=== PATIENT | female | born 1965 | race Caucasian/White ===

== ENCOUNTER 2018-05-12 22:54 | Inpatient (IN) | payer MEDICAID ==
[2018-05-13] MEDS ORDERED: ONDANSETRON 4 MG INJ IV (04:30)
[2018-05-13] MEDS ORDERED: ALBUTEROL/IPRATROPIUM (NEB) 3 ML AMP HHN (04:30)
[2018-05-13] MEDS ORDERED: NACL 0.9% 3 ML SYG IV (04:30)
[2018-05-13 04:46] LABS: ADD MAN DIFF? NO
[2018-05-13 04:51] LABS: BASOPHILS % 0.3 % (0.0-2.0); EOSINOPHILS # 0.1 10^3/ul (0.0-0.5); EOSINOPHILS % 0.7 % (0.0-7.0); HEMATOCRIT 37.2 % (37.0-47.0); HEMOGLOBIN 12.5 g/dl (12.0-16.0); LYMPHOCYTES # 2.1 10^3/ul (0.8-2.9); LYMPHOCYTES % 18.3 % (15.0-51.0); MEAN CORPUSCULAR HEMOGLOBIN 28.9 pg (29.0-33.0); MEAN CORPUSCULAR HGB CONC 33.6 g/dl (32.0-37.0); MEAN CORPUSCULAR VOLUME 86.1 fl (82.0-101.0); MONOCYTE # 0.5 10^3/ul (0.3-0.9); MONOCYTES % 4.5 % (0.0-11.0); NEUTROPHIL # 8.6 10^3/ul (1.6-7.5); NEUTROPHILS % 75.8 % (39.0-77.0); PLATELET COUNT 206 10^3/UL (140-415); RED BLOOD COUNT 4.32 10^6/ul (4.20-5.40); RED CELL DISTRIBUTION WIDTH 12.4 % (11.5-14.5)
[2018-05-13 04:51] LABS: WHITE BLOOD COUNT 11.3 10^3/ul (4.8-10.8)
[2018-05-13] MEDS: HYDROCODONE/APAP (5/325) TAB PO ×2 (05:05→13:24)
[2018-05-13 05:06] LABS: ALANINE AMINOTRANSFERASE 56 IU/L (13-69); ALBUMIN 4.1 g/dl (3.3-4.9); ALBUMIN/GLOBULIN RATIO 1.02; ALKALINE PHOSPHATASE 168 IU/L (42-121); ANION GAP 13 (5-13); ASPARTATE AMINO TRANSFERASE 51 IU/L (15-46); BILIRUBIN,INDIRECT 0.3 mg/dl (0-1.1); BILIRUBIN,TOTAL 0.3 mg/dl (0.2-1.3); BLOOD UREA NITROGEN 12 mg/dl (7-20); CALCIUM 9.5 mg/dl (8.4-10.2); CARBON DIOXIDE 26 mmol/L (21-31); CHLORIDE 102 mmol/L (97-110); CREATININE 0.35 mg/dl (0.44-1.00); Estimated GFR > 60 mL/min (>60); GLUCOSE 311 mg/dl (70-220); LIPASE 73 U/L (23-300); POTASSIUM 4.8 mmol/L (3.5-5.1); SODIUM 141 mmol/L (135-144); TOTAL PROTEIN 8.1 g/dl (6.1-8.1)
[2018-05-13 05:08] LABS: INR 0.88; PARTIAL THROMBOPLASTIN TIME 24.1 Sec (23.0-35.0); PT RATIO 0.9
[2018-05-13] MEDS ORDERED: GLUCOSE GEL 15 GRAM TUBE PO ×2 (05:30)
[2018-05-13] MEDS ORDERED: DEXTROSE 50% 50 ML SYRINGE IV ×2 (05:30)
[2018-05-13] MEDS ORDERED: GLUCOSE GEL 15 GRAM TUBE BUCCAL (05:30)
[2018-05-13] MEDS ORDERED: GLUCAGON 1 MG INJ IM (05:30)
[2018-05-13] MEDS: ASPIRIN (EC) 81 MG TAB PO (09:00)
[2018-05-13] MEDS: LISINOPRIL 5 MG TAB PO (09:07)
[2018-05-13] MEDS: HEPARIN 5,000 UNIT/1 ML VIAL SC ×2 (09:11→20:27)
[2018-05-13] MEDS: INSULIN GLARGINE [LANTus] (100 UNITS/ML) SYG SC ×2 (09:12→20:25)
[2018-05-13] MEDS: INSULIN ASPART [NOVOLOG] 3 ML PEN SC ×4 (09:16→20:24)
[2018-05-13 21:16] LABS: TROPONIN-I < 0.012 ng/ml (0.000-0.120)
[2018-05-14] MEDS ORDERED: ACCU-CHEK XX (02:00)
[2018-05-14] MEDS: HYDROCODONE/APAP (5/325) TAB PO (02:31)
[2018-05-14] MEDS: ACCU-CHEK XX (02:31)
[2018-05-14 05:10] LABS: ADD MAN DIFF? NO
[2018-05-14 05:14] LABS: WHITE BLOOD COUNT 8.9 10^3/ul (4.8-10.8)
[2018-05-14 05:14] LABS: BASOPHILS % 0.3 % (0.0-2.0); EOSINOPHILS # 0.2 10^3/ul (0.0-0.5); EOSINOPHILS % 2.2 % (0.0-7.0); HEMATOCRIT 37.9 % (37.0-47.0); HEMOGLOBIN 12.5 g/dl (12.0-16.0); LYMPHOCYTES # 2.3 10^3/ul (0.8-2.9); LYMPHOCYTES % 26.1 % (15.0-51.0); MEAN CORPUSCULAR HEMOGLOBIN 28.8 pg (29.0-33.0); MEAN CORPUSCULAR VOLUME 87.3 fl (82.0-101.0); MEAN PLATELET VOLUME 10.5 fl (7.4-10.4); MONOCYTE # 0.5 10^3/ul (0.3-0.9); MONOCYTES % 5.7 % (0.0-11.0); NEUTROPHIL # 5.8 10^3/ul (1.6-7.5); NEUTROPHILS % 65.3 % (39.0-77.0); PLATELET COUNT 204 10^3/UL (140-415); RED BLOOD COUNT 4.34 10^6/ul (4.20-5.40); RED CELL DISTRIBUTION WIDTH 12.8 % (11.5-14.5)
[2018-05-14 05:28] LABS: HEMOGLOBIN A1C 11.1 % (0-5.9)
[2018-05-14 05:35] LABS: ANION GAP 7 (5-13); BLOOD UREA NITROGEN 14 mg/dl (7-20); CALCIUM 9.1 mg/dl (8.4-10.2); CARBON DIOXIDE 27 mmol/L (21-31); CHLORIDE 103 mmol/L (97-110); CREATININE 0.46 mg/dl (0.44-1.00); Estimated GFR > 60 mL/min (>60); GLUCOSE 277 mg/dl (70-220); MAGNESIUM 1.9 mg/dl (1.7-2.5); PHOSPHORUS 4.1 mg/dl (2.5-4.9); POTASSIUM 4.4 mmol/L (3.5-5.1); SODIUM 137 mmol/L (135-144)
[2018-05-14] MEDS: INSULIN ASPART [NOVOLOG] 3 ML PEN SC ×7 (07:50→21:00)
[2018-05-14] MEDS: LISINOPRIL 5 MG TAB PO (08:31)
[2018-05-14] MEDS: HEPARIN 5,000 UNIT/1 ML VIAL SC ×2 (08:31→19:54)
[2018-05-14] MEDS: ASPIRIN (EC) 81 MG TAB PO (08:31)
[2018-05-14] MEDS: INSULIN GLARGINE [LANTus] (100 UNITS/ML) SYG SC ×2 (09:38→20:00)
[2018-05-14] MEDS: SOD CHLORIDE 0.45% 1,000 ML IV ×2 (11:10→22:50)
[2018-05-14] MEDS: morphine 4 MG/ML VIAL IV (12:34)
[2018-05-14] MEDS ORDERED: ROPIVACAINE 0.5 % 30 ML VIAL (20:22)
[2018-05-14] MEDS ORDERED: MIDAZOLAM 1 MG/ML 2 ML INJ (20:22)
[2018-05-14] MEDS ORDERED: CEFAZOLIN 1 GM INJ (20:22)
[2018-05-14] MEDS ORDERED: ROCURONIUM 50 MG INJ (20:22)
[2018-05-14] MEDS ORDERED: PROPOFOL 20 ML (20:22)
[2018-05-14] MEDS ORDERED: HYDROmorphONE 1 MG/5 ML IV SYRINGE IV ×3 (20:30)
[2018-05-14] MEDS ORDERED: METOCLOPRAMIDE 10 MG INJ IV (20:30)
[2018-05-14] MEDS ORDERED: EPHEDrine SULFATE 50 MG/5 ML SYG IV (20:30)
[2018-05-14] MEDS ORDERED: hydrALAzine 20 MG INJ IV (20:30)
[2018-05-14] MEDS ORDERED: DIPHENHYDRAMINE 50 MG INJ IV (20:30)
[2018-05-14] MEDS ORDERED: LABETALOL HCL 20MG INJ IV (20:30)
[2018-05-14] MEDS ORDERED: FENTAnyl 50 MCG/ML VIAL IV ×3 (20:30)
[2018-05-14] MEDS ORDERED: MEPERIDINE 25 MG INJ IV (20:30)
[2018-05-14] MEDS ORDERED: OXYCODONE/ACETAMINOPHEN (5/325) TAB PO ×2 (20:30)
[2018-05-14] MEDS ORDERED: ONDANSETRON 4 MG INJ IV (20:30)
[2018-05-14] MEDS ORDERED: ONDANSETRON 4 MG INJ (21:09)
[2018-05-14] MEDS ORDERED: KETOROLAC 30 MG INJ (21:10)
[2018-05-14] MEDS ORDERED: METOCLOPRAMIDE 10 MG INJ (21:10)
[2018-05-14] MEDS ORDERED: DEXAMETHASONE 4 MG/ML 5 ML INJ (21:10)
[2018-05-14] MEDS ORDERED: GLYCOPYRROLATE 1 MG INJ (22:47)
[2018-05-14] MEDS ORDERED: NEOSTIGMINE 3 MG/3 ML SYRINGE (22:47)
[2018-05-14] MEDS ORDERED: LABETALOL HCL 20MG INJ (22:52)
[2018-05-14] MEDS: SOD CHLORIDE 0.9% 1,000 ML IV (23:02)
[2018-05-14] MEDS ORDERED: NACL 0.9% 3 ML SYG IV (23:30)
[2018-05-14] MEDS ORDERED: HYDROCODONE/APAP (5/325) TAB PO (23:30)
[2018-05-14] MEDS ORDERED: morphine 4 MG/ML VIAL IV (23:30)
[2018-05-14] MEDS: CEFAZOLIN 1 GM/50 ML (PMX) 50 ML IVPB (23:37)
[2018-05-15] MEDS: INSULIN GLARGINE [LANTus] (100 UNITS/ML) SYG SC ×3 (01:10→20:35)
[2018-05-15] MEDS: INSULIN ASPART [NOVOLOG] 3 ML PEN SC ×8 (01:16→20:39)
[2018-05-15] MEDS: ACCU-CHEK XX (01:22)
[2018-05-15] MEDS: SOD CHLORIDE 0.9% 1,000 ML IV ×3 (04:44→19:02)
[2018-05-15 05:12] LABS: ADD MAN DIFF? NO
[2018-05-15 05:20] LABS: BASOPHILS % 0.2 % (0.0-2.0); HEMATOCRIT 37.7 % (37.0-47.0); HEMOGLOBIN 12.4 g/dl (12.0-16.0); LYMPHOCYTES # 1.1 10^3/ul (0.8-2.9); LYMPHOCYTES % 9.1 % (15.0-51.0); MEAN CORPUSCULAR HEMOGLOBIN 28.9 pg (29.0-33.0); MEAN CORPUSCULAR HGB CONC 32.9 g/dl (32.0-37.0); MEAN CORPUSCULAR VOLUME 87.9 fl (82.0-101.0); MEAN PLATELET VOLUME 10.9 fl (7.4-10.4); MONOCYTE # 0.2 10^3/ul (0.3-0.9); MONOCYTES % 1.6 % (0.0-11.0); NEUTROPHIL # 10.7 10^3/ul (1.6-7.5); NEUTROPHILS % 88.4 % (39.0-77.0); PLATELET COUNT 207 10^3/UL (140-415); RED BLOOD COUNT 4.29 10^6/ul (4.20-5.40)
[2018-05-15 05:20] LABS: WHITE BLOOD COUNT 12.1 10^3/ul (4.8-10.8)
[2018-05-15 05:47] LABS: ANION GAP 9 (5-13); BLOOD UREA NITROGEN 15 mg/dl (7-20); CALCIUM 8.8 mg/dl (8.4-10.2); CARBON DIOXIDE 25 mmol/L (21-31); CHLORIDE 103 mmol/L (97-110); CREATININE 0.55 mg/dl (0.44-1.00); Estimated GFR > 60 mL/min (>60); GLUCOSE 353 mg/dl (70-220); POTASSIUM 4.6 mmol/L (3.5-5.1); SODIUM 137 mmol/L (135-144)
[2018-05-15] MEDS: CEFAZOLIN 1 GM/50 ML (PMX) 50 ML IVPB ×2 (08:46→16:20)
[2018-05-15] MEDS: LISINOPRIL 5 MG TAB PO (08:58)
[2018-05-15] MEDS: ASPIRIN (EC) 81 MG TAB PO (08:58)
[2018-05-15] MEDS: ENOXAPARIN 40 MG/0.4 ML SYG SC (10:40)
[2018-05-15] MEDS: HYDROCODONE/APAP (5/325) TAB PO (10:49)
[2018-05-15] MEDS: SOD CHLORIDE 0.45% 1,000 ML IV (12:10)
[2018-05-15] MEDS: morphine 4 MG/ML VIAL IV ×2 (13:37→22:19)
[2018-05-16] MEDS: SOD CHLORIDE 0.45% 1,000 ML IV (01:30)
[2018-05-16] MEDS: ACCU-CHEK XX ×2 (02:00→21:26)
[2018-05-16] MEDS: HYDROCODONE/APAP (5/325) TAB PO ×4 (02:54→21:54)
[2018-05-16] MEDS: SOD CHLORIDE 0.9% 1,000 ML IV (05:02)
[2018-05-16 05:39] LABS: ADD MAN DIFF? NO
[2018-05-16 05:44] LABS: BASOPHILS % 0.2 % (0.0-2.0); EOSINOPHILS # 0.1 10^3/ul (0.0-0.5); EOSINOPHILS % 1.1 % (0.0-7.0); HEMATOCRIT 34.5 % (37.0-47.0); HEMOGLOBIN 11.2 g/dl (12.0-16.0); LYMPHOCYTES # 2.2 10^3/ul (0.8-2.9); LYMPHOCYTES % 16.9 % (15.0-51.0); MEAN CORPUSCULAR HEMOGLOBIN 28.9 pg (29.0-33.0); MEAN CORPUSCULAR HGB CONC 32.5 g/dl (32.0-37.0); MEAN CORPUSCULAR VOLUME 89.1 fl (82.0-101.0); MEAN PLATELET VOLUME 10.9 fl (7.4-10.4); MONOCYTE # 0.8 10^3/ul (0.3-0.9); MONOCYTES % 6.3 % (0.0-11.0); NEUTROPHIL # 9.6 10^3/ul (1.6-7.5); NEUTROPHILS % 75.1 % (39.0-77.0); PLATELET COUNT 195 10^3/UL (140-415); RED BLOOD COUNT 3.87 10^6/ul (4.20-5.40); RED CELL DISTRIBUTION WIDTH 13.4 % (11.5-14.5)
[2018-05-16 05:44] LABS: WHITE BLOOD COUNT 12.8 10^3/ul (4.8-10.8)
[2018-05-16 06:18] LABS: ANION GAP 7 (5-13); BLOOD UREA NITROGEN 15 mg/dl (7-20); CALCIUM 8.3 mg/dl (8.4-10.2); CARBON DIOXIDE 28 mmol/L (21-31); CHLORIDE 102 mmol/L (97-110); CREATININE 0.56 mg/dl (0.44-1.00); Estimated GFR > 60 mL/min (>60); GLUCOSE 266 mg/dl (70-220); POTASSIUM 4.3 mmol/L (3.5-5.1); SODIUM 137 mmol/L (135-144)
[2018-05-16] MEDS: INSULIN ASPART [NOVOLOG] 3 ML PEN SC ×7 (08:40→21:00)
[2018-05-16] MEDS: INSULIN GLARGINE [LANTus] (100 UNITS/ML) SYG SC ×2 (08:42→21:25)
[2018-05-16] MEDS: ENOXAPARIN 40 MG/0.4 ML SYG SC (08:42)
[2018-05-16] MEDS: LISINOPRIL 5 MG TAB PO (08:45)
[2018-05-16] MEDS: ASPIRIN (EC) 81 MG TAB PO (08:46)
[2018-05-17] MEDS: HYDROCODONE/APAP (5/325) TAB PO ×3 (05:02→22:49)
[2018-05-17 05:14] LABS: ADD MAN DIFF? NO
[2018-05-17 05:38] LABS: BASOPHILS % 0.2 % (0.0-2.0); EOSINOPHILS # 0.3 10^3/ul (0.0-0.5); HEMATOCRIT 35.2 % (37.0-47.0); HEMOGLOBIN 11.2 g/dl (12.0-16.0); LYMPHOCYTES # 2.2 10^3/ul (0.8-2.9); LYMPHOCYTES % 16.7 % (15.0-51.0); MEAN CORPUSCULAR HEMOGLOBIN 28.4 pg (29.0-33.0); MEAN CORPUSCULAR HGB CONC 31.8 g/dl (32.0-37.0); MEAN CORPUSCULAR VOLUME 89.3 fl (82.0-101.0); MEAN PLATELET VOLUME 10.8 fl (7.4-10.4); MONOCYTE # 0.8 10^3/ul (0.3-0.9); MONOCYTES % 6.5 % (0.0-11.0); NEUTROPHIL # 9.5 10^3/ul (1.6-7.5); NEUTROPHILS % 74.2 % (39.0-77.0); PLATELET COUNT 194 10^3/UL (140-415); RED BLOOD COUNT 3.94 10^6/ul (4.20-5.40); RED CELL DISTRIBUTION WIDTH 13.1 % (11.5-14.5)
[2018-05-17 05:38] LABS: WHITE BLOOD COUNT 12.8 10^3/ul (4.8-10.8)
[2018-05-17 06:01] LABS: ANION GAP 8 (5-13); BLOOD UREA NITROGEN 14 mg/dl (7-20); CALCIUM 8.6 mg/dl (8.4-10.2); CARBON DIOXIDE 27 mmol/L (21-31); CHLORIDE 101 mmol/L (97-110); CREATININE 0.44 mg/dl (0.44-1.00); Estimated GFR > 60 mL/min (>60); GLUCOSE 179 mg/dl (70-220); MAGNESIUM 1.9 mg/dl (1.7-2.5); PHOSPHORUS 3.3 mg/dl (2.5-4.9); POTASSIUM 4.2 mmol/L (3.5-5.1); SODIUM 136 mmol/L (135-144)
[2018-05-17] MEDS: ASPIRIN (EC) 81 MG TAB PO (08:56)
[2018-05-17] MEDS: LISINOPRIL 5 MG TAB PO (08:56)
[2018-05-17] MEDS: ENOXAPARIN 40 MG/0.4 ML SYG SC (09:02)
[2018-05-17] MEDS: INSULIN ASPART [NOVOLOG] 3 ML PEN SC ×7 (09:02→21:00)
[2018-05-17] MEDS: INSULIN GLARGINE [LANTus] (100 UNITS/ML) SYG SC ×2 (09:04→20:26)
[2018-05-17] MEDS: ACETAMINOPHEN 325 MG TAB PO (15:11)
[2018-05-17 16:11] LABS: ADD UMIC YES; UR ASCORBIC ACID NEGATIVE (NEGATIVE); UR BILIRUBIN (Dip) NEGATIVE (NEGATIVE); UR BLOOD (Dip) 2+ mg/dL (NEGATIVE); UR CLARITY CLEAR (CLEAR); UR COLOR YELLOW (YELLOW); UR GLUCOSE (Dip) 1+ mg/dL (NEGATIVE); UR KETONES (Dip) NEGATIVE (NEGATIVE); UR LEUKOCYTE ESTERASE (Dip) NEGATIVE Leu/ul (NEGATIVE); UR NITRITE (Dip) NEGATIVE (NEGATIVE); UR RBC 5 /HPF (0-5); UR SPECIFIC GRAVITY (Dip) 1.016 (1.003-1.030); UR TOTAL PROTEIN (Dip) NEGATIVE (NEGATIVE); UR UROBILINOGEN (Dip) 2+ mg/dL (NEGATIVE); UR WBC 2 /HPF (0-5)
[2018-05-17 16:35] LABS: LACTIC ACID 1.5 mmol/L (0.5-2.0)
[2018-05-17] MEDS: POLYETHYLENE GLYCOL 17 GM PACKET PO (20:18)
[2018-05-18] MEDS: ACETAMINOPHEN 325 MG TAB PO (00:41)
[2018-05-18] MEDS: ACCU-CHEK XX (01:55)
[2018-05-18] MEDS: LISINOPRIL 5 MG TAB PO (09:19)
[2018-05-18] MEDS: HYDROCODONE/APAP (5/325) TAB PO ×2 (09:19→14:10)
[2018-05-18] MEDS: ASPIRIN (EC) 81 MG TAB PO (09:19)
[2018-05-18] MEDS: INSULIN ASPART [NOVOLOG] 3 ML PEN SC ×7 (09:20→20:42)
[2018-05-18] MEDS: INSULIN GLARGINE [LANTus] (100 UNITS/ML) SYG SC ×2 (09:21→20:44)
[2018-05-18] MEDS: ENOXAPARIN 40 MG/0.4 ML SYG SC (09:22)
[2018-05-18] MEDS: MAGNESIUM CITRATE 300 ML BTL PO (16:41)
[2018-05-18] MEDS: LEVOFLOXACIN 500 MG TAB PO (17:51)
[2018-05-19] MEDS: HYDROCODONE/APAP (5/325) TAB PO ×3 (01:00→15:52)
[2018-05-19] MEDS: ACCU-CHEK XX (01:17)
[2018-05-19] MEDS: LEVOFLOXACIN 500 MG TAB PO (04:51)
[2018-05-19 05:15] LABS: ADD MAN DIFF? NO
[2018-05-19 05:26] LABS: WHITE BLOOD COUNT 11.2 10^3/ul (4.8-10.8)
[2018-05-19 05:26] LABS: BASOPHILS % 0.4 % (0.0-2.0); EOSINOPHILS # 0.2 10^3/ul (0.0-0.5); EOSINOPHILS % 1.3 % (0.0-7.0); HEMATOCRIT 34.4 % (37.0-47.0); HEMOGLOBIN 11.1 g/dl (12.0-16.0); LYMPHOCYTES # 2.4 10^3/ul (0.8-2.9); LYMPHOCYTES % 21.2 % (15.0-51.0); MEAN CORPUSCULAR HEMOGLOBIN 28.9 pg (29.0-33.0); MEAN CORPUSCULAR HGB CONC 32.3 g/dl (32.0-37.0); MEAN CORPUSCULAR VOLUME 89.6 fl (82.0-101.0); MEAN PLATELET VOLUME 10.6 fl (7.4-10.4); MONOCYTE # 0.7 10^3/ul (0.3-0.9); MONOCYTES % 6.2 % (0.0-11.0); NEUTROPHIL # 7.9 10^3/ul (1.6-7.5); NEUTROPHILS % 70.5 % (39.0-77.0); PLATELET COUNT 215 10^3/UL (140-415); RED BLOOD COUNT 3.84 10^6/ul (4.20-5.40); RED CELL DISTRIBUTION WIDTH 13.2 % (11.5-14.5)
[2018-05-19 06:10] LABS: ANION GAP 8 (5-13); BLOOD UREA NITROGEN 14 mg/dl (7-20); CALCIUM 8.7 mg/dl (8.4-10.2); CARBON DIOXIDE 29 mmol/L (21-31); CHLORIDE 103 mmol/L (97-110); CREATININE 0.55 mg/dl (0.44-1.00); Estimated GFR > 60 mL/min (>60); GLUCOSE 184 mg/dl (70-220); POTASSIUM 4.4 mmol/L (3.5-5.1); SODIUM 140 mmol/L (135-144)
[2018-05-19] MEDS: ASPIRIN (EC) 81 MG TAB PO (09:14)
[2018-05-19] MEDS: LISINOPRIL 5 MG TAB PO (09:14)
[2018-05-19] MEDS: DOCUSATE SODIUM 250 MG CAP PO (09:14)
[2018-05-19] MEDS: INSULIN ASPART [NOVOLOG] 3 ML PEN SC ×6 (09:22→18:22)
[2018-05-19] MEDS: INSULIN GLARGINE [LANTus] (100 UNITS/ML) SYG SC (09:23)
[2018-05-19] MEDS: ENOXAPARIN 40 MG/0.4 ML SYG SC (09:24)
== END 2018-05-19 18:58 | disposition home or self-care (01) | DRG 494 ==
LOC: E/R 22:54 → MS1 05-15 22:14
PROC: 0QSJ04Z Reposition Right Fibula with Internal Fixation Device, Open Approach (ICD-10-PCS; principal; 2018-05-14 14:00)
PROC: 0QSG04Z Reposition Right Tibia with Internal Fixation Device, Open Approach (ICD-10-PCS; 2018-05-14 14:00)
DX: S82.841A Displaced bimalleolar fracture of right lower leg, initial encounter for closed fracture (principal); I10 Essential (primary) hypertension; E11.65 Type 2 diabetes mellitus with hyperglycemia; E66.9 Obesity, unspecified; Z68.36 Body mass index [BMI] 36.0-36.9, adult; I16.0 Hypertensive urgency; W19.XXXA Unspecified fall, initial encounter
CPT/HCPCS: 36415; 71045; 73600; 73610-RT; 73630; 73700; 80048; 80053; 81001; 82962; 83036; 83605; 83690; 83735; 84100; 84484; 84703; 85025; 85610; 85730; 87040; 87086; 93005; 97110; 97116; 97161; 97530; 99285-25